=== PATIENT | male | born 2000 | race Caucasian/White ===

== ENCOUNTER 2019-04-15 09:04 | Emergency (ER) | payer OTHER ==
[2019-04-15] MEDS ORDERED: Dexamethasone 4 mg/ml Vial ONE (09:35)
[2019-04-15] MEDS ORDERED: Famotidine/PF 20 mg/2ml Vial ONE (09:35)
[2019-04-15] MEDS ORDERED: diphenhydrAMINE 50 MG/ML VIAL ONE (09:35)
[2019-04-15] MEDS ORDERED: EPINEPHrine 1 MG/ML AMP ONE (09:39)
[2019-04-15 09:56] LABS: #Lymphocytes 0.6 thou/uL (1.20-3.40); #Monocytes 0.5 thou/uL (0.11-0.59); #Neutrophils 11.6 thou/uL (1.40-6.50); %Basophils 0.1 % (0.0-1.0); %Eosinophils 0.3 % (0.0-10.0); %Lymphocytes 4.4 % (28.0-48.0); %Monocytes 3.9 % (0.0-4.0); %Neutrophils 91.3 % (31.0-61.0); Hemoglobin 16.9 g/dL (14.0-18.0); Mean Corpuscular HGB CONC 35.1 g/dL (32.0-36.0); Mean Corpuscular Hemoglobin 32.5 pg (25.0-35.0); Mean Corpuscular Volume 92.4 fL (78.0-98.0); Mean Platelet Volume 8.4 fL (7.4-10.4); Platelet Count 198 thou/uL (130-400); RBC Distribution Width 11.4 % (11.5-14.5); White Blood Cell (WBC) Count 12.7 thou/uL (4.8-10.8)
[2019-04-15 10:19] LABS: ALT (SGPT) 16 U/L (8-55); AST (SGOT) 14 U/L (10-45); Albumin 4.9 g/dL (3.5-5.0); Alkaline Phosphatase 99 U/L (50-130); Anion Gap 13 mmol/L (10-20); BUN (Urea Nitrogen) 17 mg/dL (8.4-21.0); Bilirubin, Total 0.8 mg/dL (0.2-1.2); CK (CPK) 106 U/L (30-200); Calc. Creatinine Clearance 0 mL/min (70-130); Calcium 9.6 mg/dL (7.8-10.44); Carbon Dioxide 24 mmol/L (22-29); Chloride 101 mmol/L (98-107); Estimated GFR-MDRD 87; Globulin 2.8 g/dL (2.4-3.5); Glucose 109 mg/dL (70-105); Protein, Total 7.7 g/dL (6.0-8.3); Sodium 134 mmol/L (136-145)
== END 2019-04-15 10:52 | disposition home or self-care (01) ==
LOC: ERS 09:04
DX: L50.9 Urticaria, unspecified (principal); F17.210 Nicotine dependence, cigarettes, uncomplicated; F41.9 Anxiety disorder, unspecified; G35 Multiple sclerosis; Z79.899 Other long term (current) drug therapy
CPT/HCPCS: 80053; 82550; 85025; 96361; 96372; 96374; 96375; J0171; J1100; J1200; S0028

== ENCOUNTER 2019-04-17 11:29 | Emergency (ER) | payer OTHER ==
[2019-04-17] MEDS ORDERED: Dexamethasone 10 MG/ML VIAL ONE (12:11)
[2019-04-17 12:16] LABS: #Lymphocytes 0.3 thou/uL (1.20-3.40); #Monocytes 0.4 thou/uL (0.11-0.59); #Neutrophils 12.1 thou/uL (1.40-6.50); %Eosinophils 0.2 % (0.0-10.0); %Lymphocytes 2.4 % (28.0-48.0); %Neutrophils 94.5 % (31.0-61.0); Hemoglobin 14.2 g/dL (14.0-18.0); Mean Corpuscular HGB CONC 34.1 g/dL (32.0-36.0); Mean Corpuscular Hemoglobin 32.2 pg (25.0-35.0); Mean Corpuscular Volume 94.4 fL (78.0-98.0); Mean Platelet Volume 8.8 fL (7.4-10.4); Platelet Count 193 thou/uL (130-400); RBC Distribution Width 11.6 % (11.5-14.5); Red Blood Cell (RBC) Count 4.41 mill/uL (4.00-5.20); White Blood Cell (WBC) Count 12.8 thou/uL (4.8-10.8)
[2019-04-17] MEDS ORDERED: Lidocaine 4% Cream 5 GM TUBE w/ Tegaderm ONE (12:19)
[2019-04-17 12:57] LABS: Bilirubin Negative (Negative); Blood, Urine Negative (Negative); Clarity Clear (Clear); Glucose, Urine (Dipstick) Normal (Negative); Leukocyte Negative Leu/uL (Negative); Nitrite Negative (Negative); Protein, Urine (Dipstick) Negative (Neg-Trace); Urobilinogen Normal mg/dL (Less than 2)
[2019-04-17 13:03] LABS: ALT (SGPT) 12 U/L (8-55); AST (SGOT) 11 U/L (10-45); Albumin 4.6 g/dL (3.5-5.0); Alkaline Phosphatase 83 U/L (50-130); Anion Gap 15 mmol/L (10-20); BUN (Urea Nitrogen) 13 mg/dL (8.4-21.0); Bilirubin, Total 0.2 mg/dL (0.2-1.2); CK (CPK) 57 U/L (30-200); Calc. Creatinine Clearance 0 mL/min (70-130); Calcium 9.4 mg/dL (7.8-10.44); Carbon Dioxide 25 mmol/L (22-29); Chloride 102 mmol/L (98-107); Estimated GFR-MDRD Greater than 90; Globulin 2.7 g/dL (2.4-3.5); Glucose 153 mg/dL (70-105); Lipase 18 U/L (8-78); Potassium 3.7 mmol/L (3.5-5.1); Protein, Total 7.3 g/dL (6.0-8.3); Sodium 138 mmol/L (136-145)
== END 2019-04-17 16:21 | disposition home or self-care (01) ==
LOC: ERS 11:29
DX: L27.1 Localized skin eruption due to drugs and medicaments taken internally (principal); T43.295A Adverse effect of other antidepressants, initial encounter; F17.210 Nicotine dependence, cigarettes, uncomplicated; F41.9 Anxiety disorder, unspecified; F32.9 Major depressive disorder, single episode, unspecified; Z79.899 Other long term (current) drug therapy
CPT/HCPCS: 36415; 80053; 81003; 82550; 83690; 85025; 96361; 96374; J1100

== ENCOUNTER 2019-04-17 18:13 | Observation (INO) | payer OTHER ==
[2019-04-18] MEDS ORDERED: Ondansetron ODT 4 MG TAB SL PRN (02:14)
[2019-04-18] MEDS ORDERED: Ondansetron PF 4 MG/2 ML Vial IVP PRN (02:14)
[2019-04-18 02:26] VITALS: BMI 23.1
[2019-04-18] MEDS ORDERED: Senokot S 8.6-50 MG TAB PO PRN (05:56)
[2019-04-18] MEDS ORDERED: Acetaminophen 325 MG TAB PO PRN (05:56)
[2019-04-18] MEDS ORDERED: diphenhydrAMINE 50 MG/ML VIAL IVP SCH ×2 (06:00→14:00)
[2019-04-18] MEDS ORDERED: Bacteriostatic Water 30 ML VIAL FS PRN (06:33)
[2019-04-18] MEDS: Sodium Chloride 0.9% 1,000 ML IV SCH ×2 (06:33→16:10)
[2019-04-18] MEDS ORDERED: methylPREDNISolone Sod Succ 40 MG VIAL IVP SCH ×2 (09:00→11:45)
[2019-04-18] MEDS ORDERED: Fingolimod Hcl [Gilenya] 0.5 MG PO SCH (09:00)
[2019-04-18] MEDS ORDERED: Famotidine/PF 20 mg/2ml Vial SLOW IVP SCH (09:00)
[2019-04-18] MEDS ORDERED: Dexamethasone 4 mg/ml Vial SLOW IVP SCH (09:00)
[2019-04-18] MEDS ORDERED: FINGOLIMOD HCL 0.5 MG PO SCH (09:00)
--- NOTE | 2019-04-18 10:39 | HP ---
CHIEF COMPLAINT: Rash. HISTORY OF PRESENT ILLNESS: The patient is a very pleasant 18-year-old male with a history of MS, who is currently on Gilenya. The patient states that he was recently put on Wellbutrin for smoking and has been taking it for about a month. He started noticing a rash which started last week. He came into the ER probably Tuesday with some swelling of his lips, and at this time, he was given Pepcid and steroids, and he was sent home with ranitidine and prednisone for 3 days. The patient stated that his symptoms initially improved, however, on Tuesday, he started having significant itching around 3 a.m. The patient stated that he did not have any problems breathing, however, had the rash all over, so he came into the hospital earlier yesterday, however, then left because he did not want to stay. He then came back again for further evaluation. The patient states that he did use a new detergent possibly on Tuesday; however, he is unsure if the worsening of his rash started before or after. At this time, he has gotten away with that. The patient also works in landscaping and outdoors, and he is always exposed to multiple things that can cause him to have a rash also. However, the patient states that he did not do anything out of the usual. He normally goes and [place] out in [place] and [place], cleaning pools, and doing other things. PAST MEDICAL HISTORY: He has a history of MS, is currently stable. PAST SURGICAL HISTORY: He denies any surgical history. SOCIAL HISTORY: He denies any alcohol use, drug use. He was a smoker, currently on Wellbutrin and full code. Lives with his family. ALLERGIES: NO KNOWN DRUG ALLERGIES. MEDICATIONS: He is on: 1. Zantac 150 mg twice a day. 2. Gilenya 0.5 mg daily. PHYSICAL EXAMINATION: VITAL SIGNS: Temperature of 98.8, saturations 100%, pulse 113, and blood pressure 142/63. GENERAL: He is awake, alert, oriented x3. Does not appear in any distress. HEENT: Normocephalic, atraumatic. No lymphadenopathy noted. Pupils equal and reactive to light. CV: S1 and S2 present. No murmurs, rubs, or gallops. LUNGS: Clear to auscultation. No rhonchi or wheezes noted. ABDOMEN: Soft and nontender. Bowel sounds are present x2. EXTREMITIES: No edema. Pedal pulses are present x2. SKIN: He does have a macular rash all over, nothing in the mouth, no mucous membranes are intact. LABORATORY RESULTS: WBCs of 12.7, hemoglobin of 14.2, hematocrit of 41.7, and platelets of 193. Chemistry; sodium 138, potassium 3.7, BUN of 13, and creatinine 0.93. ASSESSMENT AND PLAN: The patient is a very pleasant 18-year-old male, who presents to the hospital with rash. 1. Urticaria, could be secondary to drug related versus environmental. He has stopped the Wellbutrin. The patient thinks that he feels a little bit better. We will continue Pepcid. We will continue some steroids and continue Benadryl around the clock. The patient has no respiratory symptoms. No mucous membranes in the mouth involved. I did look up the side effects of Wellbutrin and Wellbutrin can cause the rash, however, so can his MS medication. However, he has been on the MS medications for quite a long time. The other source could be environmental. The patient does work out in the field, which also could cause his rash. 2. Multiple sclerosis. We will continue his home medications. 3. Deep venous thrombosis prophylaxis. We will put the patient on SCDs and also we will start the patient on some IV hydration and check CRP and ESR. May consider Infectious Disease consult if his rash does not improve. Job ID: [id number]
[2019-04-18 12:07] VITALS: TEMP 98.1
--- NOTE | 2019-04-18 12:53 | PDOC.HOSPP ---
- Subjective Encounter Date: 04/18/19 Encounter Time: 07:45 Subjective: Patient seen and examined. No new complaints. No overnight events - Objective Vital Signs & Weight: Vital Signs (12 hours) Temp Pulse Resp BP BP Pulse Ox 04/18/19 11:28 98.1 F 83 14 117/56 L 97 04/18/19 07:39 97.8 F 70 16 116/58 L 97 04/18/19 02:08 97.7 F 70 16 121/68 98 Weight Admit Weight 185 lb Weight 185 lb I&O: 04/17/19 04/18/19 04/19/19 06:59 06:59 06:59 Intake Total 240 Balance 240 Hospitalist ROS - Review of Systems Constitutional: denies: fever, chills, sweats, weakness, malaise, other Eyes: denies: pain, vision change, conjunctivae inflammation, eyelid inflammation, redness, other ENT: denies: ear pain, ear discharge, nose pain, nose discharge, nose congestion , mouth pain, mouth swelling, throat pain, throat swelling, other Respiratory: denies: cough, dry, shortness of breath, hemoptysis, SOB with excertion, pleuritic pain, sputum, wheezing, other Cardiovascular: denies: chest pain, palpitations, orthopnea, paroxysmal noc. dyspnea, edema, light headedness, other Gastrointestinal: denies: nausea, vomiting, abdominal pain, diarrhea, constipation, melena, hematochezia, other Genitourinary: denies: dysuria, frequency, incontinence, hematuria, retention, other Musculoskeletal: denies: neck pain, shoulder pain, arm pain, back pain, hand pain, leg pain, foot pain, other Skin: reports: rash. denies: lesions, alissa, bruising, other - Medication Medications: Active Medications Generic Name Dose Route Start Last Admin Trade Name Freq PRN Reason Stop Dose Admin Famotidine 20 mg 04/18/19 09:00 04/18/19 09:07 Pepcid SLOW IVP 20 mg Q12HR ERVIN Administration Sodium Chloride 1,000 mls @ 100 mls/hr 04/18/19 06:00 04/18/19 06:33 Normal Saline 0.9% IV 1,000 mls .Q10H ERVIN Administration Methylprednisolone Sodium Succinate 40 mg 04/18/19 09:00 04/18/19 09:07 Solu-Medrol IVP 04/20/19 09:01 40 mg DAILY ERVIN Administration Methylprednisolone Sodium Succinate 40 mg 04/18/19 11:45 04/18/19 12:33 Solu-Medrol IVP 04/18/19 13:45 40 mg NOW ERVIN Administration Fingolimod Hcl [ 0 each 04/18/19 09:00 04/18/19 09:59 Gilenya] 0.5 Mg PO 1 each DAILY ERVIN Administration - Exam General Appearance: NAD, awake alert Eye: PERRL, anicteric sclera ENT: normocephalic atraumatic, no oropharyngeal lesions Neck: supple, symmetric, no JVD, no thyromegaly Heart: RRR, no murmur, no gallops, no rubs Respiratory: CTAB, no wheezes, no rales, no ronchi Gastrointestinal: soft, non-tender, non-distended, normal bowel sounds Extremities: no cyanosis, no clubbing, no edema Skin: normal turgor, no lesions Neurological: cranial nerve grossly intact, normal sensation to touch, no focal deficits Musculoskeletal: normal tone, normal strength, no muscle wasting Psychiatric: normal affect, normal behavior, A&O x 3 Hosp A/P (1) Rash and nonspecific skin eruption Code(s): R21 - RASH AND OTHER NONSPECIFIC SKIN ERUPTION Status: Acute (2) Multiple sclerosis Code(s): G35 - MULTIPLE SCLEROSIS Status: Chronic - Plan old records reviewed/req 04/18/19 Exact etiology of rash not known but as acute onset, suspecting new allergen, probably welbutrin, will give one more dose of IV steroid he will be ok to discharge on oral steroid and he needs to follow up with photo print specialist or dermatology if ongoing problem does not have any infection related rash based on his history
--- NOTE | 2019-04-18 16:04 | SS ---
DATE OF ADMISSION: 04/18/2019 DATE OF DISCHARGE: 04/18/2019 Date of admission April 18, 2019 at 2 a.m. Date of discharge April 18, 2019 at 3 p.m. PRIMARY DISCHARGE DIAGNOSIS: Maculopapular rash, suspecting from Wellbutrin. SECONDARY DISCHARGE DIAGNOSES: Multiple sclerosis. PRIMARY PROCEDURE/OPERATION: None. RADIOLOGICAL INVESTIGATION: None. HISTORY OF PRESENT ILLNESS: A 18-year-old male, who has multiple sclerosis and he is taking fingolimod medicine for a long period of time without any problem. Recently, he started Wellbutrin and subsequently, he noted maculopapular urticarial type of rash on his body that has responded to prednisone, but he was having intermittent rash and that is why he came back to emergency room and in the emergency room, he was given Solu-Medrol and after that, we gave him another dose of Solu-Medrol as well as Benadryl and with that, his urticarial rash is much improved. We are changing to p.o. prednisone and Pepcid and Benadryl on discharge. The patient is advised that if his rash is returning back, then he will need follow up with Dermatology and primary care physician or credit collection specialist to do more investigation. REVIEW OF SYSTEMS: CONSTITUTIONAL: Negative for weight loss or gain, ability to conduct usual activities. SKIN: Negative for rash, itching. EYES: Negative for double vision, pain. ENT/MOUTH: Negative for nose bleeding, neck stiffness, pain, tenderness. CARDIOVASCULAR: Negative for palpitations, dyspnea on exertion, orthopnea. RESPIRATORY: Negative for shortness of breath, wheezing, cough, hemoptysis, fever or night sweats. GASTROINTESTINAL: Negative for poor appetite, abdominal pain, heartburn, nausea, vomiting, constipation, or diarrhea. GENITOURINARY: Negative for urgency, frequency, dysuria, nocturia. MUSCULOSKELETAL: Negative for pain, swelling. NEUROLOGIC/PSYCHIATRIC: Negative for anxiety, depression. ALLERGY/IMMUNOLOGIC: Negative for skin rash, bleeding tendency. Please see my HPI for pertinent positives and negatives. All other review of systems reviewed and negative except as mentioned in HPI. PAST MEDICAL HISTORY: Multiple sclerosis on fingolimod therapy. PAST SURGICAL HISTORY: Reviewed and negative. PAST PSYCHIATRIC HISTORY: Anxiety disorder. SOCIAL HISTORY: History of smoking six cigarettes daily. No alcohol abuse. No other illicit drug abuse. ALLERGIES: NO KNOWN DRUG ALLERGIES. CURRENT MEDICATIONS: 1. Gilenya (fingolimod) one tablet daily. 2. Wellbutrin, which he stopped. 3. Zantac 150 mg b.i.d. 4. Medrol Dosepak. PHYSICAL EXAMINATION: VITAL SIGNS: Currently, blood pressure 136/53, pulse 99, respiratory rate 18, and saturation 99% on room air. Weight 83.9 kg. GENERAL: The patient is currently alert and awake, no acute distress. HEENT: Head, normocephalic and atraumatic. Eyes, pupils are round and reactive to light. Extraocular muscle intact. ENT, oropharynx within normal limits. Moist mucous membranes. NECK: Supple. No JVD. LUNGS: Clear to auscultation without any rhonchi or rales. CARDIAC: S1 and S2. Regular without any murmur. No gallop. No rub. ABDOMEN: Soft and benign without any tenderness. EXTREMITIES: No edema. NEUROLOGIC: Nonfocal examination. SIGNIFICANT LABORATORY DATA: CBC; WBC 12.8, hemoglobin 14.2, platelet 193, and ESR less than 1. BMP; sodium 138, potassium 3.7, chloride 102, carbon dioxide 25, BUN 13, creatinine 0.95, and calcium 9.4. LFT normal. CRP 1.24. Urinalysis normal. DISCHARGE MEDICATIONS: The patient will continue; 1. Fingolimod or Gilenya 0.5 mg p.o. daily. 2. Benadryl 25 mg q.6 hourly p.r.n. 3. Pepcid 20 mg b.i.d. 4. Prednisone 20 mg p.o. b.i.d. CONTRAINDICATION: None. CODE STATUS: Full code. INPATIENT WEB RETAILER: None. ALLERGIES: NO KNOWN DRUG ALLERGIES. DISCHARGE PLAN: Posthospital, the patient is instructed to make appointment with Dermatology or allergy specialists if recurrent rash. Otherwise, follow up with primary care physician. HOSPITAL COURSE: Please see my hospital course above. The patient was admitted for a rash for observation. His rash is not consistent with Gutiérrez-Kristian syndrome. His rash is not related with any infectious etiology. His rash is most likely urticarial rash suspected from Wellbutrin. The patient has responded to steroid and we will consider discharge. Family member was updated about the plan. The patient is admitted and discharged on the same day. Job ID: [id number]
[2019-04-18 16:45] VITALS: BP 128/58
== END 2019-04-18 16:45 | disposition home or self-care (01) ==
LOC: ERS 18:13 → 2SW 04-18 02:04
PROVIDERS: ADMIT Internal Medicine; ATTEND Internal Medicine
DX: R21 Rash and other nonspecific skin eruption (principal); G35 Multiple sclerosis; F17.210 Nicotine dependence, cigarettes, uncomplicated; F41.9 Anxiety disorder, unspecified; F32.9 Major depressive disorder, single episode, unspecified; Z79.899 Other long term (current) drug therapy
CPT/HCPCS: 36415; 85652; 86140; 96374; 96375; 96376; G0378; J1200; J2920; S0028

== ENCOUNTER 2022-01-09 04:14 | Emergency (ER) | payer OTHER ==
[2022-01-09] MEDS ORDERED: Lidocaine Viscous Sol 2% 15 ml UD Cup ONE (04:48)
[2022-01-09 04:57] LABS: Bilirubin 1+ (Negative); Blood, Urine Negative (Negative); Clarity Turbid (Clear); Glucose, Urine (Dipstick) Normal (Negative); Ketone, Urine Negative (Negative); Leukocyte 250 Leu/uL (Negative); Nitrite 1+ (Negative); Protein, Urine (Dipstick) 30 mg/dL (Neg-Trace); RBC/HPF 0-3 HPF (0-3); Specific Gravity, Urine 1.019 (1.002-1.036); Squamous Epithelial 0-3 HPF (0-3); WBC/HPF 21-50 HPF (0-3)
[2022-01-09 04:58] LABS: Bacteria/HPF 1+ HPF (None Seen)
[2022-01-09 05:26] LABS: #Eosinphils 0.1 thou/uL (0.0-0.7); #Lymphocytes 0.6 thou/uL (1.20-3.40); #Monocytes 0.8 thou/uL (0.11-0.59); %Basophils 0.1 % (0.0-1.0); %Eosinophils 1.4 % (0.0-10.0); %Lymphocytes 8.8 % (21.0-51.0); %Monocytes 11.8 % (0.0-10.0); %Neutrophils 77.9 % (42.0-75.0); Hemoglobin 13.3 g/dL (14.0-18.0); Mean Corpuscular HGB CONC 33.2 g/dL (32.0-36.0); Mean Corpuscular Hemoglobin 31.8 pg (27.0-31.0); Mean Corpuscular Volume 95.7 fL (78.0-98.0); Mean Platelet Volume 8.8 fL (7.4-10.4); Platelet Count 183 thou/uL (130-400); RBC Distribution Width 11.7 % (11.5-14.5); Red Blood Cell (RBC) Count 4.19 mill/uL (4.70-6.10); White Blood Cell (WBC) Count 6.4 thou/uL (4.8-10.8)
[2022-01-09] MEDS ORDERED: cefTRIAXone\\ROCEPHIN 1 GM VIAL ONE (05:33)
[2022-01-09] MEDS ORDERED: Lidocaine 1% MPF 2 ML VIAL ONE (05:34)
[2022-01-09 05:40] LABS: ALT (SGPT) 30 U/L (8-55); AST (SGOT) 17 U/L (5-34); Albumin 4.5 g/dL (3.5-5.0); Alkaline Phosphatase 82 U/L (40-110); Anion Gap 15 mmol/L (10-20); BUN (Urea Nitrogen) 15 mg/dL (8.9-20.6); Bilirubin, Total 0.6 mg/dL (0.2-1.2); Calc. Creatinine Clearance 0 mL/min (70-130); Calcium 9.2 mg/dL (7.8-10.44); Carbon Dioxide 24 mmol/L (22-29); Chloride 104 mmol/L (98-107); Estimated GFR 113; Globulin 2.8 g/dL (2.4-3.5); Glucose 123 mg/dL (70-105); Potassium 3.5 mmol/L (3.5-5.1); Protein, Total 7.3 g/dL (6.0-8.3); Sodium 139 mmol/L (136-145)
== END 2022-01-09 06:24 | disposition home or self-care (01) ==
LOC: ERS 04:14
DX: N30.00 Acute cystitis without hematuria (principal); F17.290 Nicotine dependence, other tobacco product, uncomplicated
CPT/HCPCS: 36415; 51702; 80053; 81003; 81015; 85025; 87086; 96372; J0696